=== PATIENT | female | born 1960 | race Caucasian/White ===

== ENCOUNTER → 2016-11-12 | Outpatient (CLI) | payer BC ==
[~2016-11-12] VITALS: Ht 163.8 cm; Wt 65.8 kg
[~2016-11-12] MED LIST: ALEVE220 MG PO; ARTIFICIAL TEAR15 M1 BOTH EYES; LOPRESSOR50 MG PO; ZESTRIL20 MG PO
[2016-11-12 09:23] LABS: HEMATOCRIT 47.4 % (36.0-46.0); MCH 32.2 PG (29.0-34.0); MCHC 33.1 G/DL (30.0-36.0); MCV 97.1 FL (83-99); MEAN PLAT.VOLUME 8.5 uM^3 (9.5-12.4); PLATELET COUNT 244 K/uL (156-360); RBC DIS.WIDTH-CV 11.9 % (11.8-14.6); RBC DIS.WIDTH-SD 42.7 % (39-53); RED BLOOD COUNT 4.88 M/uL (3.80-5.20); WHITE BLOOD COUNT 5.8 K/uL (4.1-10.2)
== END | disposition home or self-care (01) ==
LOC: OPR 08:26 → EDSTATUS 09:00 → OPR 09:00
PROVIDERS: Nurse Practitioner Family
PROC: [UNRECOGNIZED PROCEDURE] (principal; 2016-11-12)
DX: C78.6 Secondary malignant neoplasm of retroperitoneum and peritoneum (principal); F17.200 Nicotine dependence, unspecified, uncomplicated
CPT/HCPCS: 71010; 77012; 85027; 88305; 88341 TC; 88342 TC; J3010

== ENCOUNTER → 2017-01-21 | Outpatient (CLI) | payer BC ==
[~2017-01-21] MED LIST changes: +FISH OIL 1,0001 EAC7 PO; +LORAZEPAM2 MG PO; +MOTRIN IB200 MG PO; +OXAYDO5 MG PO; +ZESTORETIC 20-1 EAC1 PO; +ZOFRAN4 MG PO
[2017-01-21 12:05] LABS: TYPE OF FLUID PLEURAL
[2017-01-21 12:42] LABS: BODY FLUID LDH 178 IU/L; BODY FLUID PROTEIN 5.2 G/DL
[2017-01-21 12:52] LABS: BODY FLUID RBC'S 3000 /MM^3 (0-100); BODY FLUID WBC'S 586 /MM^3 (0-500)
[2017-01-21 13:45] LABS: BODY FLUID EOSINOPHILS 5 % (0-25); MONO RAW COUNT 74; MONONUCLEAR WBC'S 74 %; POLY RAW COUNT 21; POLYNUCLEAR WBC'S 21 % (0-25)
== END | disposition home or self-care (01) ==
LOC: RAD 10:22 → EDSTATUS 11:00
PROVIDERS: Family Medicine
PROC: 0W993ZZ Drainage of Right Pleural Cavity, Percutaneous Approach (ICD-10-PCS; principal; 2017-01-21)
DX: J90 Pleural effusion, not elsewhere classified (principal); C56.9 Malignant neoplasm of unspecified ovary
CPT/HCPCS: 76942; 82945; 83615; 83615 91; 84157; 87070; 87075; 87205; 89051

== ENCOUNTER 2017-01-25 13:47 | Inpatient (IN) | payer BC ==
[~2017-01-25] VITALS: Ht 160 cm; Wt 71.0 kg
[~2017-01-25 13:47] MED LIST changes: -MOTRIN IB200 MG PO; -ZESTORETIC 20-1 EAC1 PO
[2017-01-25 14:24] LABS: HEMATOCRIT 45.3 % (36.0-46.0); MCH 32.5 PG (29.0-34.0); MCHC 34.2 G/DL (30.0-36.0); PLATELET COUNT 337 K/uL (156-360); RBC DIS.WIDTH-SD 42.2 % (39-53); RED BLOOD COUNT 4.77 M/uL (3.80-5.20); WHITE BLOOD COUNT 10.1 K/uL (4.1-10.2)
[2017-01-25 14:37] LABS: CHLORIDE 95 mEq/L (99-109); POTASSIUM 4.3 mEq/L (3.7-5.4); SODIUM 132 mEq/L (136-147)
[2017-01-25 14:39] LABS: GLUCOSE 144 mg/dL (70-99)
[2017-01-25 14:40] LABS: ANION GAP 11 MEQ/L (2-14)
[2017-01-25 14:42] LABS: GFR ESTIMATE (CALCULATED) > 59 mL/min/
[2017-01-25 14:43] LABS: UREA NITROGEN (BUN) 7 mg/dL (9-23)
[2017-01-25 14:49] LABS: TROP-I INTERPRETATION NEGATIVE; TROPONIN-I < 0.01 ng/mL (0.0-0.30)
[2017-01-25] MEDS ORDERED: ZESTORETIC 20-1 EAC1 PO (18:06)
[2017-01-25] MEDS ORDERED: MOTRIN IB200 MG PO (18:07)
[2017-01-25 21:05] VITALS: BP 124/66
[2017-01-25 23:12] VITALS: BP 105/56
[2017-01-26 03:50] VITALS: BP 127/70
[2017-01-26 06:02] LABS: HEMATOCRIT 41.1 % (36.0-46.0); MCH 31.9 PG (29.0-34.0); MCHC 33.6 G/DL (30.0-36.0); MCV 94.9 FL (83-99); MEAN PLAT.VOLUME 8.2 uM^3 (9.5-12.4); PLATELET COUNT 322 K/uL (156-360); RBC DIS.WIDTH-CV 12.2 % (11.8-14.6); RBC DIS.WIDTH-SD 42.6 % (39-53); RED BLOOD COUNT 4.33 M/uL (3.80-5.20)
[2017-01-26 06:15] LABS: INTER. NORMALIZED RATIO 1.3; PROTHROMBIN TIME 14.6 SEC (10.2-12.9)
[2017-01-26 06:17] LABS: PTT 29.7 SEC (25-37)
[2017-01-26 06:26] LABS: ANION GAP 9 MEQ/L (2-14); CHLORIDE 97 MEQ/L (99-109); GFR ESTIMATE (CALCULATED) > 59 mL/min/; GLUCOSE 141 mg/dL (70-99); POTASSIUM 4.3 MEQ/L (3.7-5.4); SAMPLE HEMOLYSIS CHECK 0; SAMPLE ICTERIC CHECK 0; SAMPLE LIPEMIA CHECK 0; SODIUM 132 MEQ/L (136-147); UREA NITROGEN (BUN) 5 mg/dL (9-23)
[2017-01-26 08:18] VITALS: BP 144/67
[2017-01-26 11:20] VITALS: BP 119/63
[2017-01-26 19:44] VITALS: BP 94/55
[2017-01-26 23:11] VITALS: BP 98/55
[2017-01-27 03:48] VITALS: BP 113/63
[2017-01-27 07:04] VITALS: BP 107/59
[2017-01-27 08:59] LABS: HEMATOCRIT 40.1 % (36.0-46.0); MCH 32.1 PG (29.0-34.0); MCHC 33.4 G/DL (30.0-36.0); MCV 95.9 FL (83-99); PLATELET COUNT 301 K/uL (156-360); RBC DIS.WIDTH-CV 12.2 % (11.8-14.6); RBC DIS.WIDTH-SD 43.2 % (39-53); RED BLOOD COUNT 4.18 M/uL (3.80-5.20); WHITE BLOOD COUNT 8.5 K/uL (4.1-10.2)
[2017-01-27 09:33] LABS: ANION GAP 5 MEQ/L (2-14); CHLORIDE 95 MEQ/L (99-109); GFR ESTIMATE (CALCULATED) > 59 mL/min/; SAMPLE HEMOLYSIS CHECK 0; SAMPLE ICTERIC CHECK 0; SAMPLE LIPEMIA CHECK 0; SODIUM 131 MEQ/L (136-147); UREA NITROGEN (BUN) 7 mg/dL (9-23)
[2017-01-27 09:35] LABS: GLUCOSE 228 mg/dL (70-99)
[2017-01-27 11:52] VITALS: BP 117/59
[2017-01-27 15:54] VITALS: BP 122/62
[2017-01-27 16:50] LABS: Estimated Average Glucose 126 mg/dL (70-123)
[2017-01-27 20:00] VITALS: BP 110/60
[2017-01-28] VITALS (8 sets, daily range): BP systolic 88–133; BP diastolic 51–77
[2017-01-28 06:14] LABS: BASOPHIL COUNT 0.1 K/uL (0-0.1); EOSINOPHIL (%) 1.5 % (0-5); EOSINOPHIL COUNT 0.1 K/uL (0-0.3); IMMATURE GRANULOCYTE COUNT 0.1 K/uL; INSTRUMENT ABS NEUTROPHIL CT 6.6 K/uL; LYMPHOCYTE COUNT 1.2 K/uL (1.0-2.8); MCH 31.8 PG (29.0-34.0); MCHC 33.6 G/DL (30.0-36.0); MCV 94.8 FL (83-99); MEAN PLAT.VOLUME 8.3 uM^3 (9.5-12.4); MONOCYTE (%) 8.9 % (3-12); MONOCYTE COUNT 0.8 K/uL (0-0.8); NEUTROPHIL (%) 74.8 % (45-76); NEUTROPHIL COUNT 6.6 K/uL (1.8-6.4); PLATELET COUNT 329 K/uL (156-360); RBC DIS.WIDTH-CV 12.2 % (11.8-14.6); RBC DIS.WIDTH-SD 43.2 % (39-53); RED BLOOD COUNT 4.43 M/uL (3.80-5.20); WHITE BLOOD COUNT 8.8 K/uL (4.1-10.2)
[2017-01-28 06:35] LABS: ANION GAP 8 MEQ/L (2-14); CHLORIDE 95 MEQ/L (99-109); GFR ESTIMATE (CALCULATED) > 59 mL/min/; GLUCOSE 114 mg/dL (70-99); POTASSIUM 4.5 MEQ/L (3.7-5.4); SAMPLE HEMOLYSIS CHECK 0; SAMPLE ICTERIC CHECK 0; SAMPLE LIPEMIA CHECK 0; SODIUM 133 MEQ/L (136-147); UREA NITROGEN (BUN) 6 mg/dL (9-23)
[2017-01-29 03:35] VITALS: BP 137/64
[2017-01-29 07:01] VITALS: BP 151/73
[2017-01-29 09:43] LABS: HEMATOCRIT 41.7 % (36.0-46.0); MCH 31.6 PG (29.0-34.0); MCHC 33.8 G/DL (30.0-36.0); MCV 93.5 FL (83-99); MEAN PLAT.VOLUME 8.1 uM^3 (9.5-12.4); PLATELET COUNT 391 K/uL (156-360); RED BLOOD COUNT 4.46 M/uL (3.80-5.20); WHITE BLOOD COUNT 12.8 K/uL (4.1-10.2)
[2017-01-29 10:10] LABS: ANION GAP 9 MEQ/L (2-14); CHLORIDE 92 MEQ/L (99-109); GFR ESTIMATE (CALCULATED) > 59 mL/min/; GLUCOSE 141 mg/dL (70-99); POTASSIUM 4.8 MEQ/L (3.7-5.4); SAMPLE HEMOLYSIS CHECK 0; SAMPLE ICTERIC CHECK 0; SAMPLE LIPEMIA CHECK 0; SODIUM 129 MEQ/L (136-147); UREA NITROGEN (BUN) 10 mg/dL (9-23)
[2017-01-29 11:13] VITALS: BP 128/76
[2017-01-29 13:04] VITALS: BP 119/64
[2017-01-29 18:43] VITALS: BP 121/73
[2017-01-29 22:36] VITALS: BP 113/65
[2017-01-30 04:00] VITALS: BP 125/78
[2017-01-30 07:20] VITALS: BP 118/63
[2017-01-30 09:46] LABS: HEMATOCRIT 38.2 % (36.0-46.0); MCH 32.1 PG (29.0-34.0); MCV 94.3 FL (83-99); MEAN PLAT.VOLUME 8.3 uM^3 (9.5-12.4); PLATELET COUNT 360 K/uL (156-360); RBC DIS.WIDTH-CV 12.2 % (11.8-14.6); RBC DIS.WIDTH-SD 42.8 % (39-53); RED BLOOD COUNT 4.05 M/uL (3.80-5.20); WHITE BLOOD COUNT 9.8 K/uL (4.1-10.2)
[2017-01-30 10:23] LABS: ANION GAP 8 MEQ/L (2-14); CHLORIDE 91 MEQ/L (99-109); GFR ESTIMATE (CALCULATED) > 59 mL/min/; SAMPLE HEMOLYSIS CHECK 0; SAMPLE ICTERIC CHECK 0; SAMPLE LIPEMIA CHECK 0; SODIUM 128 MEQ/L (136-147); UREA NITROGEN (BUN) 11 mg/dL (9-23)
[2017-01-30 10:29] LABS: GLUCOSE 218 mg/dL (70-99)
[2017-01-30 11:15] VITALS: BP 124/61
[2017-01-30 12:27] LABS: URIC ACID 2.4 mg/dL (3.1-9.2)
[2017-01-30 16:35] VITALS: BP 127/68
[2017-01-30 22:53] VITALS: BP 105/60
[2017-01-31 06:16] LABS: BASOPHIL COUNT 0.1 K/uL (0-0.1); EOSINOPHIL (%) 1.1 % (0-5); EOSINOPHIL COUNT 0.1 K/uL (0-0.3); HEMATOCRIT 42.3 % (36.0-46.0); IMMATURE GRANULOCYTE (%) 1.5 % (0.0-0.7); IMMATURE GRANULOCYTE COUNT 0.1 K/uL; INSTRUMENT ABS NEUTROPHIL CT 5.2 K/uL; LYMPHOCYTE COUNT 1.2 K/uL (1.0-2.8); MCH 32.4 PG (29.0-34.0); MCHC 33.8 G/DL (30.0-36.0); MCV 95.7 FL (83-99); MONOCYTE (%) 8.1 % (3-12); MONOCYTE COUNT 0.6 K/uL (0-0.8); NEUTROPHIL (%) 71.9 % (45-76); NEUTROPHIL COUNT 5.2 K/uL (1.8-6.4); PLATELET COUNT 418 K/uL (156-360); RBC DIS.WIDTH-CV 12.3 % (11.8-14.6); RBC DIS.WIDTH-SD 43.5 % (39-53); RED BLOOD COUNT 4.42 M/uL (3.80-5.20); WHITE BLOOD COUNT 7.3 K/uL (4.1-10.2)
[2017-01-31 06:44] LABS: ANION GAP 8 MEQ/L (2-14); CHLORIDE 94 MEQ/L (99-109); GFR ESTIMATE (CALCULATED) > 59 mL/min/; GLUCOSE 124 mg/dL (70-99); POTASSIUM 4.7 MEQ/L (3.7-5.4); SAMPLE HEMOLYSIS CHECK 0; SAMPLE ICTERIC CHECK 0; SAMPLE LIPEMIA CHECK 0; SODIUM 133 MEQ/L (136-147); UREA NITROGEN (BUN) 10 mg/dL (9-23)
[2017-01-31 07:00] VITALS: BP 126/69
[2017-01-31 15:00] VITALS: BP 129/71
[2017-02-01] VITALS: BP 96/57
[2017-02-01 08:54] VITALS: BP 109/67
[2017-02-01 15:00] VITALS: BP 114/71
[2017-02-02 00:15] VITALS: BP 120/82
[2017-02-02 06:05] LABS: ANION GAP 6 MEQ/L (2-14); CHLORIDE 95 MEQ/L (99-109); GFR ESTIMATE (CALCULATED) > 59 mL/min/; GLUCOSE 133 mg/dL (70-99); POTASSIUM 4.7 MEQ/L (3.7-5.4); SAMPLE HEMOLYSIS CHECK 0; SAMPLE ICTERIC CHECK 0; SAMPLE LIPEMIA CHECK 0; SODIUM 132 MEQ/L (136-147); UREA NITROGEN (BUN) 10 mg/dL (9-23)
[2017-02-02 07:16] VITALS: BP 110/66
[2017-02-02 09:57] VITALS: BP 110/66
[2017-02-02] MEDS ORDERED: OXAYDO5 MG PO (12:05)
[2017-02-02] MEDS ORDERED: OXYCODONE HCL10 MG PO ×2 (12:28→15:49)
[2017-02-02] MEDS ORDERED: LIDOCARE1 EACH TP (12:28)
[2017-02-02] MEDS ORDERED: LORAZEPAM2 MG PO (12:28)
== END 2017-02-02 16:00 | disposition home or self-care (01) | DRG 982 ==
LOC: EME 13:47 → EDOF 18:19 → 5EAST 18:19 → ENRESERV 18:20 → 5EAST 20:10 → ENPENDDIS 02-02 → 5EAST 02-02 16:00
PROVIDERS: Hospitalist; Internal Medicine; Thoracic Surgery (Cardiothoracic Vascular Surgery)
DX: C79.51 Secondary malignant neoplasm of bone (principal); J91.0 Malignant pleural effusion; Z85.43 Personal history of malignant neoplasm of ovary; R09.02 Hypoxemia; J93.82 Other air leak; E22.2 Syndrome of inappropriate secretion of antidiuretic hormone; J98.01 Acute bronchospasm; E11.9 Type 2 diabetes mellitus without complications; K59.00 Constipation, unspecified; I10 Essential (primary) hypertension; M25.511 Pain in right shoulder; M54.2 Cervicalgia; M54.5 Low back pain; R00.0 Tachycardia, unspecified; R10.9 Unspecified abdominal pain; F17.210 Nicotine dependence, cigarettes, uncomplicated; Z17.0 Estrogen receptor positive status [ER+]; Z80.51 Family history of malignant neoplasm of kidney; Z82.3 Family history of stroke; Z83.3 Family history of diabetes mellitus; Z90.710 Acquired absence of both cervix and uterus
CPT/HCPCS: 71010; 71020; 71275; 74177; 76942; 80048; 82435; 83036; 83930; 83935; 84300; 84484; 84550; 85025; 85027; 85610; 85730; 93005; 94640; 94640 76; 94667; 94668; 94760; 94799; 99202; 99281; 99285; J0330; J0690; J1100; J1170; J1644; J1650; J1885; J2250; J2270; J2405; J2710; J3010; J7120

== ENCOUNTER 2017-03-16 09:43 | Inpatient (IN) | payer BC ==
[~2017-03-16] VITALS: Ht 165.1 cm; Wt 64.4 kg
[~2017-03-16 09:43] MED LIST changes: +LIDOCARE1 EACH TP; +LISINOPRIL20 MG PO; +MOTRIN IB200 MG PO; +OXYCODONE HCL10 MG PO; +ZOFRAN ODT4 MG PO; -ZOFRAN4 MG PO
[2017-03-16 10:47] LABS: HEMATOCRIT 35.5 % (36.0-46.0); HEMOGLOBIN 12.1 G/DL (11.9-15.5); MCH 30.3 PG (29.0-34.0); MCHC 34.1 G/DL (30.0-36.0); MCV 88.8 FL (83-99); PLATELET COUNT 129 K/uL (156-360); RBC DIS.WIDTH-CV 13.5 % (11.8-14.6); RBC DIS.WIDTH-SD 44.3 % (39-53); WHITE BLOOD COUNT 9.6 K/uL (4.1-10.2)
[2017-03-16 10:55] LABS: CHLORIDE 96 mEq/L (99-109); SODIUM 128 mEq/L (136-147)
[2017-03-16 10:57] LABS: GLUCOSE 116 mg/dL (70-99)
[2017-03-16 11:01] LABS: CREATININE 0.5 mg/dL (0.6-1.3); GFR ESTIMATE (CALCULATED) > 59 mL/min/
[2017-03-16 11:02] LABS: UREA NITROGEN (BUN) 14 mg/dL (9-23)
[2017-03-16 13:34] LABS: TROP-I INTERPRETATION NEGATIVE; TROPONIN-I 0.14 ng/mL (0.0-0.30)
[2017-03-16] MEDS ORDERED: LORAZEPAM0.5 MG PO (13:46)
[2017-03-16] MEDS ORDERED: OXYCODONE HCL5 MG PO (13:48)
[2017-03-16 13:49] LABS: TROP-I INTERPRETATION NEGATIVE; TROPONIN-I 0.15 ng/mL (0.0-0.30)
[2017-03-16] MEDS ORDERED: DECADRON4 MG PO (13:50)
[2017-03-16] MEDS ORDERED: FENTANYL1 EAC3 TD (13:52)
[2017-03-16] MEDS ORDERED: FENTANYL1 EAC1 TD (13:53)
[2017-03-16 17:37] VITALS: BP 105/61
[2017-03-16 21:37] VITALS: BP 112/66
[2017-03-17 00:20] VITALS: BP 116/57
[2017-03-17 01:38] LABS: TROP-I INTERPRETATION NEGATIVE; TROPONIN-I 0.04 ng/mL (0.0-0.30)
[2017-03-17 05:58] LABS: BASOPHIL (%) 0.1 % (0-1); EOSINOPHIL (%) 0 % (0-5); HEMOGLOBIN 11.3 G/DL (11.9-15.5); IMMATURE GRANULOCYTE (%) 1.2 % (0.0-0.7); LYMPHOCYTE (%) 5.4 % (15-42); LYMPHOCYTE COUNT 0.6 K/uL (1.0-2.8); MCH 29.6 PG (29.0-34.0); MCHC 32.3 G/DL (30.0-36.0); MCV 91.6 FL (83-99); MONOCYTE (%) 4.3 % (3-12); MONOCYTE COUNT 0.4 K/uL (0-0.8); NEUTROPHIL COUNT 9.1 K/uL (1.8-6.4); PLATELET COUNT 130 K/uL (156-360); RBC DIS.WIDTH-CV 13.8 % (11.8-14.6); RBC DIS.WIDTH-SD 46.1 % (39-53); RED BLOOD COUNT 3.82 M/uL (3.80-5.20); WHITE BLOOD COUNT 10.2 K/uL (4.1-10.2)
[2017-03-17 06:27] LABS: CHLORIDE 99 MEQ/L (99-109); CREATININE 0.3 MG/DL (0.6-1.3); GFR ESTIMATE (CALCULATED) > 59 mL/min/; GLUCOSE 158 mg/dL (70-99); POTASSIUM 5.1 MEQ/L (3.7-5.4); SODIUM 133 MEQ/L (136-147); UREA NITROGEN (BUN) 11 mg/dL (9-23)
[2017-03-17 07:05] VITALS: BP 115/61
[2017-03-17 15:00] VITALS: BP 157/74
[2017-03-17 22:29] VITALS: BP 174/88
[2017-03-18 03:33] VITALS: BP 149/87
[2017-03-18 04:08] LABS: BASE EXCESS 3.9 mEq/L (-3 to +3); BICARBONATE 29.2 mEq/L (22-26); CARBOXY HGB 1.6 % (0-5); METHEMOGLOBIN 1.6 % (0-1.5); PCO2 46 mm Hg (35-45); PO2 98 mm Hg (80-100); pH 7.41 (7.35-7.45)
[2017-03-18 04:09] LABS: COMMENTS - BLOOD GASES C+; DEVICE NCHH; FI02 100 %; O2 FLOW 40 L/MIN; SITE LR; TOTAL RESP RATE 21 resp/min
[2017-03-18 05:24] LABS: TROP-I INTERPRETATION NEGATIVE; TROPONIN-I 0.01 ng/mL (0.0-0.30)
[2017-03-18 06:55] VITALS: BP 151/75
[2017-03-18 07:28] LABS: VANCOMYCIN, TROUGH 4.7 MCG/ML (10-20)
[2017-03-18 07:46] LABS: HEMATOCRIT 36.4 % (36.0-46.0); HEMOGLOBIN 11.8 G/DL (11.9-15.5); MCH 29.6 PG (29.0-34.0); MCHC 32.4 G/DL (30.0-36.0); MCV 91.2 FL (83-99); PLATELET COUNT 124 K/uL (156-360); RBC DIS.WIDTH-CV 13.7 % (11.8-14.6); RBC DIS.WIDTH-SD 46.1 % (39-53); RED BLOOD COUNT 3.99 M/uL (3.80-5.20); WHITE BLOOD COUNT 15.3 K/uL (4.1-10.2)
[2017-03-18 08:01] LABS: CHLORIDE 99 MEQ/L (99-109); CREATININE 0.4 MG/DL (0.6-1.3); GFR ESTIMATE (CALCULATED) > 59 mL/min/; GLUCOSE 141 mg/dL (70-99); POTASSIUM 4.5 MEQ/L (3.7-5.4); SODIUM 133 MEQ/L (136-147); UREA NITROGEN (BUN) 11 mg/dL (9-23)
[2017-03-18 11:27] VITALS: BP 107/58
[2017-03-18 13:31] LABS: INTER. NORMALIZED RATIO 1.3
[2017-03-18 13:34] LABS: PTT 24.9 SEC (25-37)
[2017-03-18 14:59] LABS: TYPE OF FLUID PLEURAL
[2017-03-18 15:20] VITALS: BP 137/80
[2017-03-18 15:44] LABS: APPEARANCE AMBER-CLOUDY; BODY FLUID EOSINOPHILS 0 % (0-25); BODY FLUID RBC'S 33000 /MM^3 (0-100); BODY FLUID WBC'S 108 /MM^3 (0-500); MONONUCLEAR WBC'S 53 %; POLYNUCLEAR WBC'S 47 % (0-25)
[2017-03-18 15:47] LABS: BODY FLUID GLUCOSE 21 MG/DL; BODY FLUID LDH 2597 IU/L; BODY FLUID PROTEIN 3.5 G/DL
[2017-03-18 15:58] LABS: GLUCOSE 159 mg/dL (70-99); LACTATE DEHYDROGENASE 245 IU/L (20-246)
[2017-03-18 19:20] VITALS: BP 130/71
[2017-03-18] MEDS ORDERED: MELATONIN5 MG/15 ML PO (20:37)
[2017-03-19] VITALS (8 sets, daily range): BP systolic 131–144; BP diastolic 70–93
[2017-03-19 07:04] LABS: CREATININE 0.4 MG/DL (0.6-1.3); GFR ESTIMATE (CALCULATED) > 59 mL/min/
[2017-03-19 07:19] LABS: VANCOMYCIN, TROUGH 12.1 MCG/ML (10-20)
[2017-03-20] VITALS (22 sets, daily range): BP systolic 120–156; BP diastolic 74–99
[2017-03-20 02:56] LABS: BASE EXCESS 8.4 mEq/L (-3 to +3); BICARBONATE 34.4 mEq/L (22-26); CARBOXY HGB 1.7 % (0-5); COMMENTS - BLOOD GASES C+; DEVICE HFNC & NRBM FLUSH; METHEMOGLOBIN 1.8 % (0-1.5); O2 FLOW 15 L/MIN; PCO2 53 mm Hg (35-45); PO2 67 mm Hg (80-100); SITE RR; pH 7.42 (7.35-7.45)
[2017-03-20 02:57] LABS: TOTAL RESP RATE 20 resp/min
[2017-03-20 05:07] LABS: BASOPHIL (%) 0.1 % (0-1); EOSINOPHIL (%) 0 % (0-5); HEMATOCRIT 34.5 % (36.0-46.0); HEMOGLOBIN 11.4 G/DL (11.9-15.5); IMMATURE GRANULOCYTE (%) 0.8 % (0.0-0.7); LYMPHOCYTE (%) 2.3 % (15-42); LYMPHOCYTE COUNT 0.3 K/uL (1.0-2.8); MCH 29.9 PG (29.0-34.0); MCV 90.6 FL (83-99); MONOCYTE (%) 1.8 % (3-12); MONOCYTE COUNT 0.2 K/uL (0-0.8); NEUTROPHIL COUNT 11.2 K/uL (1.8-6.4); PLATELET COUNT 95 K/uL (156-360); RBC DIS.WIDTH-CV 13.9 % (11.8-14.6); RED BLOOD COUNT 3.81 M/uL (3.80-5.20); WHITE BLOOD COUNT 11.8 K/uL (4.1-10.2)
[2017-03-20 05:35] LABS: CHLORIDE 94 MEQ/L (99-109); CREATININE 0.3 MG/DL (0.6-1.3); GFR ESTIMATE (CALCULATED) > 59 mL/min/; GLUCOSE 125 mg/dL (70-99); POTASSIUM 3.8 MEQ/L (3.7-5.4); SODIUM 133 MEQ/L (136-147); UREA NITROGEN (BUN) 16 mg/dL (9-23)
[2017-03-20 15:19] LABS: INTER. NORMALIZED RATIO 1.3
[2017-03-20 15:21] LABS: PTT 22.6 SEC (25-37)
[2017-03-21] VITALS (18 sets, daily range): BP systolic 128–165; BP diastolic 83–103
[2017-03-21 09:07] LABS: HEMOGLOBIN 12.3 G/DL (11.9-15.5); MCHC 32.4 G/DL (30.0-36.0); MCV 92.7 FL (83-99); PLATELET COUNT 110 K/uL (156-360); RBC DIS.WIDTH-CV 13.9 % (11.8-14.6); RBC DIS.WIDTH-SD 47.1 % (39-53); WHITE BLOOD COUNT 14.2 K/uL (4.1-10.2)
[2017-03-22] VITALS (13 sets, daily range): BP systolic 118–177; BP diastolic 72–105
== END 2017-03-22 13:07 | DRG 180 ==
LOC: EME 09:43 → EDOF 12:43 → 5EAST 12:43 → ENRESERV 12:44 → 5EAST 17:12 → ENRESERV 03-19 19:47 → 5EAST 03-19 20:03 → ENRESERV 03-19 20:11 → 4EAST 03-19 22:10 → ENRESERV 03-20 03:52 → 4EAST 03-20 03:59 → 4WEST 03-20 04:02
PROVIDERS: Hospitalist; Internal Medicine; Internal Medicine Critical Care Medicine; Internal Medicine Pulmonary Disease; Physician Assistant
DX: C78.00 Secondary malignant neoplasm of unspecified lung (principal); J91.0 Malignant pleural effusion; J96.01 Acute respiratory failure with hypoxia; J86.9 Pyothorax without fistula; J18.9 Pneumonia, unspecified organism; J44.0 Chronic obstructive pulmonary disease with (acute) lower respiratory infection; C79.51 Secondary malignant neoplasm of bone; J44.1 Chronic obstructive pulmonary disease with (acute) exacerbation; E87.1 Hypo-osmolality and hyponatremia; D69.6 Thrombocytopenia, unspecified; I10 Essential (primary) hypertension; E11.9 Type 2 diabetes mellitus without complications; E78.5 Hyperlipidemia, unspecified; I82.443 Acute embolism and thrombosis of tibial vein, bilateral; F41.9 Anxiety disorder, unspecified; G89.29 Other chronic pain; M54.9 Dorsalgia, unspecified; K59.00 Constipation, unspecified; F17.210 Nicotine dependence, cigarettes, uncomplicated; Y95 Nosocomial condition; Z66 Do not resuscitate; Z51.5 Encounter for palliative care; Z85.43 Personal history of malignant neoplasm of ovary; Z90.710 Acquired absence of both cervix and uterus; Z92.21 Personal history of antineoplastic chemotherapy; Z79.891 Long term (current) use of opiate analgesic; Z99.81 Dependence on supplemental oxygen
CPT/HCPCS: 36600; 71045; 71046; 71275; 76604; 76942; 80048; 80053; 80202; 82565; 82803; 82945; 82947 91; 83605; 83615; 83615 91; 83880; 84145 90; 84155; 84157; 84484; 85025; 85027; 85610; 85730; 87040; 87070; 87075; 87116; 87205; 87206; 87449; 87502; 87641; 88108; 88305; 89051; 93005; 93970; 94002; 94003; 94640; 94640 76; 94760; 94799; 99202; 99281; 99285; G0463; J0456; J1650; J1940; J2060; J2270; J2543; J2920; J2930; J3010; J3370; J7030; J7050